=== PATIENT | male | born 1990 | race Caucasian/White ===

== ENCOUNTER 2023-06-15 15:47 | Outpatient (CLI) | payer OTHER, SELFPAY ==
--- NOTE | ~2023-06-15 | XR_ITS ---
XR chest 2V DATE: 06/15/2023 16:08 INDICATION: Tobacco abuse TECHNIQUE: PA and lateral chest COMPARISON: None FINDINGS: Normal heart size. No hilar or mediastinal enlargement. Moderate hyperinflation. No pulmona ry infiltrate or consolidation, pleural effusion or pulmonary vascular congestion or pneumothorax is detected. IMPRESSION: Moderate hyperinflation Reviewed, dictated and finalized at location A. IMPRESSION: Moderate hyperinflation
== END 2023-06-15 15:48 | disposition home or self-care (01) ==
PROVIDERS: PCP Nurse Practitioner Adult Health; Visit Provider Nurse Practitioner Adult Health
DX: R63.4 Abnormal weight loss (principal); Z72.0 Tobacco use; R91.8 Other nonspecific abnormal finding of lung field
CPT/HCPCS: 71046

== ENCOUNTER 2023-06-29 14:49 | Outpatient (CLI) | payer OTHER, SELFPAY ==
--- NOTE | 2023-06-29 16:05 | WPDPFTINT ---
PFT Procedure Performed PFT Procedure Performed Plethysmography (Lung Vol) Diffusing Cap (DLCO) Flow Vol Loop Spirometry w/o Bronchodil PFT Interpretation This is a pulmonary function test with spirometry, plethysmography and diffusing capacity. The test was performed and results interpreted in accordance with the 2019 and 2005 ATS/ERS Task Force guidelines respectively using the Global Lung Function Initiative-2012 reference equations. Patient demonstrated good effort and cooperation. Reproducibility criteria were met. The quality of the spirometry maneuver was Grade A. Findings: Spirometry: The contour the inspiratory and expiratory flow tracing are normal. The FVC is 4.75 L, 92% predicted. The FEV1 is 4.01 L, 94% predicted. The FEV1: FVC ratio is 84%. Plethysmography: The total lung capacity is 6.48 L, 97% predicted. The functional residual capacity is 3.74 L, 114% predicted. The residual volume is 1.72 L, 106% predicted. Diffusing capacity: The diffusing capacity unadjusted for hemoglobin and carboxyhemoglobin is 30.8, 90% predicted. The diffusing capacity adjusted for alveolar volume is 5.12, 100% predicted. Impression: The spirometry is normal without evidence of an obstructive abnormality. The lung volumes are normal. The diffusing capacity is normal. There are no prior studies for comparison
== END 2023-06-29 14:50 | disposition home or self-care (01) ==
LOC: ANHPFT 14:51
PROVIDERS: PCP Nurse Practitioner Adult Health; Visit Provider Nurse Practitioner Adult Health
DX: R09.89 Other specified symptoms and signs involving the circulatory and respiratory systems (principal); Z72.0 Tobacco use
CPT/HCPCS: 94375; 94726; 94729

== ENCOUNTER 2024-08-08 18:58 | Emergency (ER) | payer OTHER, SELFPAY ==
--- NOTE | ~2024-08-08 | XR_ITS ---
EXAM: XR ankle LT min 3V, XR tibia fibula LT 2V DATE: 08/08/2024 19:21 HISTORY: L ankle injury . COMPARISON: None available. FINDINGS: Normal mineralization. No fracture or dislocation. No lytic or blastic lesion. Joint space s are maintained. No erosion or periosteal change. Soft tissues within normal limits. IMPRESSION: No acute osseous finding in the left ankle or left tibia/fibula. Reviewed, dictated and finalized at location K. IMPRESSION: No acute osseous finding in the left ankle or left tibia/fibula.
[2024-08-08 19:01] VITALS: BP 136/78; PULSE 93; RESP 16; TEMP 36.5; O2SAT 98
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
--- OUTSIDE RECORDS SUMMARY | 2024-08-08 19:01 | XMS_ITS | Encounter Summary ---
Author Organization [facility] Address [address] [place] [address] Care Team Providers Care Lean Specialist Name Role Phone Suzanne Turcios MD Primary Care Provider [phone] Encounter Details Date Type Department Care Team (Latest Contact Info) Description 07/07/2024 Results Follow-Up [facility] [employer] [place] [address] [place] [address] Karlee Escalera ANP [address] [facility] [employer] [address] [place] [address] VITAMIN D 25 HYDROXY, COMPREHENSIVE METABOLIC PANEL, CBC WITH DIFFERENTIAL, Additional followed-up results: 2 Social History Tobacco Use Types Packs/Day Years Used Date Smoking Tobacco: Every Day Cigarettes Alcohol Use Standard Drinks/Week Comments Not Currently 0 (1 standard drink = 0.6 oz pur e alcohol) special occassions Sex and Gender Information Value Date Recorded Sex Assigned at Not on file 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 Vit D level slightly low. Cholesterol and other labs good. Keep 07/11 appt documented in this encounter Plan of Treatment Upcoming Encounters Date Type Department Care Team (Late st Contact Info) Description 08/25/2024 11:00 AM CDT Office Visit [facility] at [facility] [employer] [place] [address] [place] [phone] Darin Powell [address] [place] [phone] 10/10/2024 10:30 AM CDT Office Visit [facility] at [employer] [place] [address] [place] [address] Suzanne Turcios MD [address] [place] [address] documented as of this encounter Visit Diagnoses Not on filedocumented in this encounter Care Teams Lean Specialist Relationship Specialty Start Date End Date Suzanne Turcios MD [address] [place] [address] PCP - General Internal Medicine 07/19/23 documented as of this encounter
--- OUTSIDE RECORDS SUMMARY | 2024-08-08 19:01 | XMS_ITS | Clinical Summary ---
Author Organization [facility] [facility] Address [address] [place] [address] Care Team Providers Care Shift Leader Name Role Phone Suzanne Turcios MD Primary Care Provider [phone] Allergies Active Allergy Reactions Criticality Noted Date Comments Nicotine (Polacrilex) Headache Low 05/17/2023 Penicillins Hives High 05/17/2023 Sulfa (Sulfonamide Antibiotics) Hives High 05/03 Medications fluticasone propionate (FLONASE) 50 mcg/spray [place], Suspension nasal inhalerIndicat ions:Perennial allergic rhinitis with seasonal variation Administer 2 Sprays in each nostril daily. 16 Gram 05/17/19 24 Active cetirizine (ZyrTEC) 5 mg tabletIndicati ons:Perennial allergic rhinitis with seasonal variation Take 1 Tablet (5 mg) by mouth daily. 90 Tablet 05/17/19 24 Active cyanocobalamin (VITAMIN B-12) 100 mcg tablet Take 100 mcg by mouth daily. Active mirtazapine (REMERON) 15 mg tabletIndicati ons:Situationa l mixed anxiety and depressive disorder Take 1-2 Tablets (15-30 mg) by mouth daily at bedtime. 180 Tablet 1 08/05/19 25 Active mirtazapine (REMERON) 30 mg tabletIndicati ons:Mixed anxiety and depressive disorder TAKE 1 TABLET BY MOUTH EVERYDAY AT BEDTIME 90 Tablet 1 07/08/19 25 025 Discontinued mirtazapine (REMERON) 15 mg tabletIndicati ons:Situationa l mixed anxiety and depressive disorder Take 1 Tablet (15 mg) by mouth daily at bedtime. 30 Tablet 07/12/19 25 025 Discontinued Active Problems Problem Noted Date Diagnosed Date Low vitamin D level 07/09/2024 Pure hypercholesterolemia 07/09/2024 Hyperinflation of lungs 06/18/2023 Overview (06/18/2023): On CXR 06/2023 Tobacco abuse 05/17/2023 Abnormal weight loss 05/17/2023 Marital conflict involving divorce 05/17/2023 Perennial allergic rhinitis with seasonal variat ion 05/17/2023 Encounters Date Type Department Care Team Description 08/08/2024 3:30 PM CDT Clinical Support [facility] at [place] [address] [facility] [facility] [place] [address] Screening for condition (Primary Dx) 08/02/2024 Refill [facility] at [address] [facility] [place] [address] Suzanne Turcios MD Situational mixed anxiety and depressive disorder 07/25/2024 3:00 PM CDT Office Visit [facility] at [place] [address] [place] [address] Darin Powell Marital conflict involving divorce (Primary Dx) 07/17/2024 Telephone [facility] at [address] [place] [address] Darin Powell [employer] Linda Appt (Provider offering pt earlier appointment. Left message.) 07/11/2024 1:30 PM CDT Office Visit [place] [address] [address] [facility] [place] [address] Suzanne Turcios MD Situational mixed anxiety and depressive disorder (Primary Dx); Right knee pain, unspecified chronicity; Low vitamin D level 07/07/2024 Results Follow-Up [facility] at [place] [address] [facility] [place] [phone] Karlee Escalera, ANP VITAMIN D 25 HYDROXY, COMPREHENSIVE METABOLIC PANEL, CBC WITH DIFFERENTIAL, Additional followed-up results: 2 07/06/2024 Refill [facility] at [place] [address] [place] [address] Suzanne Turcios MD Mixed anxiety and depressive disorder 07/03/2024 2:00 PM CDT Clinical Support [place] [address] [facility] [place] [phone] Screening for condition 06/20/2024 3:00 PM CDT Office Visit [place] [address] [facility] [place] [address] Darin Powell Marital conflict involving divorce (Primary Dx) 06/18/2024 Chart Note [facility] at [place] [address] [facility] [address] [place] [address] Darin Powell 05/23/2024 Telephone [facility] at [place] [address] [place] [address] Darin Powell [employer] Linda Appt (Rescheduled canceled appointment to 06/20/24 at 3 PM in office.) 05/23/2024 Telephone [facility] at [place] [address] [place] [phone] Darin Powell [employer] Linda Appt (1st contact to reschedule canceled appointment. Left message.) 05/09/2024 Chart Note [facility] at [place] [address] [place] [address] Darin Powell from Last 3 Months Immunizations Immunization Administration Dates Next Due INFLUENZA VACCINE TRIVALENT SPLIT VIRUS, (6 MOS UP), 0.5ML (PF), IM 01/04/2024 Tdap Vaccine > 7 Yo IM VFC 05/16/2022 Family History Medical History Relation Name Comments No Known Problems Brother No Known Problems Daughter Diabetes Father Hypertension Father Diabetes Maternal Grandfather Diabetes Maternal Grandmother Diabetes Mother Hypertension Mother Diabetes Paternal Grandfather Diabetes Paternal Grandmother Relation Name Status Comments Brother Alive Daughter Alive Father Alive Maternal Grandfather Alive Maternal Grandmother Alive Mother Alive Paternal Grandfather Alive Paternal Grandmother Alive Social History Tobacco Use Types Packs/Day Years Used Date Smoking Tobacco: Every Day Cigarettes Tobacco Cessation:Ready to Q uit: Not Asked; Counseling Given: Not Answered Alcohol Use Standard Drinks/Week Comments Not Currently 0 (1 standard drink = 0.6 oz pur e alcohol) special occassions Sex and Gender Information Value Date Recorded Sex Assigned at Not on file 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 Gender Identity Not on file Sexual Orientation Not on file Last Filed Vital Signs Vital Sign Reading Time Taken Comments Blood Pressure 116/82 07/11/2024 1:29 PM CDT Pulse 92 07/11/2024 1:29 PM CDT Temperature 37.2 C (98.9 F) 04/11/2024 2:36 PM CULINARY INTERN Respiratory Rate 18 07/11/2024 1:29 PM CDT Oxygen Saturation 96% 07/11/2024 1:29 PM CDT Inhaled Oxygen Concentration - - Weight 65.5 kg (144 lb 6.4 oz) 07/11/2024 1:29 P M CDT Height 175.3 cm (5' 9) 07/11/2024 1:29 PM CDT Body Mass Index 21.32 07/11/2024 1:29 PM CDT Plan of Treatment Upcoming Encounters Date Type Department Care Team (Late st Contact Info) Description 08/25/2024 11:00 AM CDT Office Visit [facility] at [facility] [employer] [place] [address] [place] [address] Darin Powell [address] [place] [phone] 10/10/2024 10:30 AM CDT Office Visit [facility] at [facility] [employer] [place] [address] [place] [address] Suzanne Turcios MD [address] [place] [address] Health Maintenance Due Date Last Done Comments HEPATITIS B VACCINES (1 of 3 - 19+ 3-dose series) 2008 Preventative Visit- Commercial 03/05/2024 DTAP/TDAP/TD VACCINES (2 - T d or Tdap) 05/16/2032 05/16/2022, 05/16/2022 INFLUENZA VACCINE Completed 01/04/2024 HPV VACCINES Aged Out No longer eligi ble based on patient's age to complete this topic Procedures Procedure Name Priority Date/Time Associated Diagnosis Comments TSH Routine 07/03/2024 1:49 PM CDT Screening for condition LIPID PANEL Routine 07/03/2024 1:49 PM CDT Screening for condition CBC WITH DIFFERENTIAL Routine 07/03/2024 1:49 PM CDT Screening for condition COMPREHENSIVE METABOLIC PANEL Routine 07/03/2024 1:49 PM CDT Screening for condition VITAMIN D 25 HYDROXY Routine 07/03/2024 1:49 PM CDT Screening for condition from Last 3 Months Results * CBC WITH DIFFERENTIAL (07/03/2024 1:49 PM CDT) WBC 8.1 3.8 - 10.8 Thousand/u L [facility] RBC 5.12 4.20 - 5.80 Million/uL [facility] HEMOGLOBIN 15.5 13.2 - 17.1 g/dL [facility] HEMATOCRIT 47.4 38.5 - 50.0 % [facility] MCV 92.6 80.0 - 100.0 fL [facility] MCH 30.3 27.0 - 33.0 pg [facility] MCHC 32.7 32.0 - 36.0 g/dL [facility] Comment: For adults, a slight decrease in the calculated MCHC value (in the range of 30 to 32 g/dL) is most likely not clinically significant; however, it should be interpreted with caution in correlation with other red cell parameters and the patient's clinical condition. RDW 12.2 11.0 - 15.0 % [facility] PLATELETS 248 140 - 400 Thousand/u L [facility] MPV 10.9 7.5 - 12.5 fL [facility] NEUTROPHIL ABSOLUTE 5,905 1,500 - 7,800 cells/uL [facility] LYMPHOCYTE ABSOLUTE 1,499 850 - 3,900 cells/uL [facility] MONOCYTE ABSOLUTE 518 200 - 950 cells/uL [facility] EOSINOPHIL ABSOLUTE 97 15 - 500 cells/uL [facility] BASOPHILS ABSOLUTE 81 0 - 200 cells/uL [facility] NEUTROPHIL 72.9 % [facility] LYMPHOCYTES 18.5 % [facility] MONOCYTE 6.4 % [facility] EOSINOPHILS 1.2 % [facility] BASOPHILS 1.0 % [facility] Comment: Test Performed at: [place] [address] [address] [address] [facility] Carm[facility] Andrews Blood 07/03/2024 1:49 PM CDT 07/04/2024 2:52 AM CDT us Suzanne Turcios MD HEMATOLOGY ORDERABLES Final Re sult [facility] [phone] [place] [address] [address] [place] [address] * (ABNORMAL) VITAMIN D 25 HYDROXY (07/03/2024 1:49 PM CDT) VITAMIN D, 25 OH, TOTAL 22(L) 30 - 100 ng/mL [facility] Comment: Vitamin D Status 25-OH Vitamin D: Deficiency: <20 ng/mL Insufficiency: 20 - 29 ng/mL Optimal: > or = 30 ng/mL For 25-OH Vitamin D testing on patients on D2-supplementation and patients for whom quantitation of D2 and D3 fractions is required, the [facility](TM) 25-OH VIT D, (D2,D3), LC/MS/MS is recommended: order code 74940 (patients >2yrs). See Note 1 Note 1 For additional information, please refer to http://education.[employer]/faq/AGD490 (This link is being provided for informational/ educational purposes only.) Test Performed at: [facility] [address] [place] [address] Becca Andrews MD Blood 07/03/2024 1:49 PM CDT 07/04/2024 2:52 AM CDT Suzanne Turcios MD CHEMISTRY ORDERABLES Final Res ult Performing Organization Address City/[facility]/ZIP [facility] Phone Number [facility] [phone] [facility] [address] [place] [address] * TSH (07/03/2024 1:49 PM CDT) Pathologist [facility] TSH 0.93 0.40 - 4.50 mIU/L [facility] radha Modi Comment: Test Performed at: [facility] [place] [address] [place] [address] Becca Andrews Blood 07/03/2024 1:49 PM CDT 07/04/2024 2:52 AM CDT Suzanne Turcios MD CHEMISTRY ORDERABLES Final Res ult Performing Organization Address [facility] Phone Number [facility] [phone] [place] [address] [place] [address] * (ABNORMAL) LIPID PANEL (07/03/2024 1:49 PM CDT) CHOLESTEROL 181 <200 mg/dL [facility] HDL 43 > OR = 40 mg/dL [facility] TRIGLYCERIDE 91 <150 mg/dL [facility] LDL CALCULATED 119(H) mg/dL (calc) [facility] Comment: Reference range: <100 Desirable range <100 mg/dL for primary prevention; <70 mg/dL for patients with CHD or diabetic patients with > or = 2 CHD risk factors. LDL-C is now calculated using the Rosa calculation, which is a validated novel method providing better accuracy than the Friedewald equation in the estimation of LDL-C. Daniel PIERSON et al. ANDRAE. 2013;310(19): 2350-2427 (http://education.[employer]/faq/NRO493) CHOL/HDL RATIO 4.2 <5.0 (calc) [facility] NON-HDL CHOLESTEROL 138(H) <130 mg/dL (calc) [facility] Comment: For patients with diabetes plus 1 major ASCVD risk factor, treating to a non-HDL-C goal of <100 mg/dL (LDL-C of <70 mg/dL) is considered a therapeutic option. Test Performed at: [place] [address] [place] [address] [facility] Carmela Andrews Blood 07/03/2024 1:49 PM CDT 07/04/2024 2:52 AM CDT us Suzanne Turcios MD CHEMISTRY ORDERABLES Final Res ult [facility] [phone] [place] [address] [place] [address] * COMPREHENSIVE METABOLIC PANEL (07/03/2024 1:49 PM CDT) GLUCOSE 92 65 - 99 mg/dL [facility] Comment: Fasting reference interval BUN 15 7 - 25 mg/dL [facility] Modi CREATININE 1.05 0.60 - 1.26 mg/dL [facility] Modi GFR 96 > OR = 60 mL/min/1. 73m2 [facility] Modi BUN/CREAT RATIO SEE NOTE: 6 - 22 (calc) [facility] Comment: Not Reported: BUN and Creatinine are within reference range. SODIUM 138 135 - 146 mmol/L [facility] POTASSIUM 4.2 3.5 - 5.3 mmol/L [facility] CHLORIDE 102 98 - 110 mmol/L [facility] Modi CO2 27 20 - 32 mmol/L [facility] Modi CALCIUM 9.5 8.6 - 10.3 mg/dL [facility] TOTAL PROTEIN 6.6 6.1 - 8.1 g/dL [facility] Modi ALBUMIN 4.5 3.6 - 5.1 g/dL [facility] GLOBULIN 2.1 1.9 - 3.7 g/dL (calc) [facility] radha Moid ALBUMIN/GLOBULIN RATIO 2.1 1.0 - 2.5 (calc) [facility] radha Modi BILIRUBIN TOTAL 0.6 0.2 - 1.2 mg/dL [facility] radha Modi ALKALINE PHOSPHATASE 71 36 - 130 U/L [facility] AST 18 10 - 40 U/L [facility] ALT 31 9 - 46 U/L [facility] Comment: Test Performed at: [place] [address] [place] [address] [facility] Blood 07/03/2024 1:49 PM CDT 07/04/2024 2:52 AM CDT us Suzanne Turcios MD CHEMISTRY ORDERABLES Final Res ult [facility] [phone] [place] [address] [place] [address] from Last 3 Months Insurance [facility] OPEN ACCESS [facility] OPEN ACCESS Care Teams Shift Leader Relationship Specialty Start Date End Date Suzanne Turcios MD [address] [place] [address] PCP - General Internal Medicine 07/19/23
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
--- OUTSIDE RECORDS SUMMARY | 2024-08-08 20:46 | XMS_ITS | Encounter Summary ---
Author Organization [facility] Address [address] [place] [address] Care Team Providers Care Hem Marker Name Role Phone Suzanne Turcios MD Primary Care Provider [phone] Reason for Visit * Reason Comments Nurse Only Encounter Details Date Type Department Care Team (Latest Contact Info) Description 08/08/2024 3:30 PM CDT Clinical Support [facility] [place] [address] [place] [address] Screening for condition (Primary Dx) Social History Tobacco Use Types Packs/Day Years Used Date Smoking Tobacco: Every Day Cigarettes Alcohol Use Standard Drinks/Week Comments Not Currently 0 (1 standard drink = 0.6 oz pur e alcohol) special occassions Sex and Gender Information Value Date Recorded Sex Assigned at Not on file 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 [place] [address] [place] [address] Suzanne Turcios MD [address] [place] [address] documented as of this encounter Visit Diagnoses Diagnosis Screening for condition- Primary Screening for unspecified condition documented in this encounter Care Teams Hem Marker Relationship Specialty Start Date End Date Suzanne Turcios MD [address] [place] [address] PCP - General Internal Medicine 07/19/23 documented as of this encounter
--- OUTSIDE RECORDS SUMMARY | 2024-08-08 20:46 | XMS_ITS | Clinical Summary ---
Author Organization [facility] Address [address] [place] [address] Care Team Providers Care Ginning Operator Name Role Phone Suzanne Turcios MD Primary Care Provider [phone] Allergies Active Allergy Reactions Criticality Noted Date Comments Nicotine (Polacrilex) Headache Low 05/17/2023 Penicillins Hives High 05/17/2023 Sulfa (Sulfonamide Antibiotics) Hives High 05/03 Medications fluticasone propionate (FLONASE) 50 mcg/spray [place], Suspension nasal inhalerIndicat ions:Perennial allergic rhinitis with [...] Description 08/08/2024 3:30 PM CDT Clinical Support [facility] at [place] [address] [address] [facility] [place] [address] Screening for condition (Primary Dx) 08/02/2024 Refill [facility] [address] [facility] [facility] [place] [address] Suzanne Turcios MD Situational mixed anxiety and depressive disorder 07/25/2024 3:00 PM CDT Office Visit [facility] at [place] [address] [place] [address] Darin Powell Marital conflict involving divorce (Primary Dx) 07/17/2024 Telephone [facility] [address] [place] [address] Darin Powell Co[employer] Linda Appt (Provider offering pt earlier appointment. Left message.) 07/11/2024 1:30 PM CDT Office Visit [place] [address] [address] [facility] [place] [address] Suzanne Turcios MD Situational mixed anxiety and depressive disorder (Primary Dx); Right knee pain, unspecified chronicity; Low vitamin D level 07/07/2024 Results Follow-Up [facility] [place] [address] [facility] [place] [phone] Karlee Escalera, ANP VITAMIN D 25 HYDROXY, COMPREHENSIVE METABOLIC PANEL, CBC WITH DIFFERENTIAL, Additional followed-up results: 2 07/06/2024 Refill [facility] at [place] [address] [place] [address] Suzanne Turcios MD Mixed anxiety and depressive disorder 07/03/2024 2:00 PM CDT Clinical Support [place] [address] [facility] [address] [place] [address] Screening for condition 06/20/2024 3:00 PM CDT Office Visit [place] [address] [facility] [address] [place] [address] Darin Powell Marital conflict involving divorce (Primary Dx) 06/18/2024 Chart Note [facility] [place] [address] [facility] [address] [place] [phone] Darin Powell 05/23/2024 Telephone [facility] [place] [address] [place] [address] Darin Powell Co[employer] Linda Appt (Rescheduled canceled appointment to 06/20/24 at 3 PM in office.) 05/23/2024 Telephone [facility] [place] [address] [place] [address] Darin Powell CoCM Linda Appt (1st contact to reschedule canceled appointment. 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 Gender Identity Not on file Sexual Orientation Not on file Last Filed Vital Signs Vital Sign Reading Time Taken Comments Blood Pressure 116/82 07/11/2024 1:29 PM CDT Pulse 92 07/11/2024 1:29 PM CDT Temperature 37.2 C (98.9 F) 04/11/2024 2:36 PM DIRECTOR AIRPORT OPERATIONS Respiratory Rate 18 07/11/2024 1:29 PM CDT [...] Description 08/25/2024 11:00 AM CDT Office Visit [facility] [employer] [place] [address] [place] [address] Darin Powell [address] [place] [phone] 10/10/2024 10:30 AM CDT Office Visit [facility] [employer] [place] [address] [place] [address] Suzanne Turcios MD [address] [place] [address] Health Maintenance Due Date Last [...] WBC 8.1 3.8 - 10.8 Thousand/u L [facility] [place] RBC 5.12 4.20 - 5.80 Million/uL [facility] HEMOGLOBIN 15.5 13.2 - 17.1 g/dL [facility] HEMATOCRIT 47.4 38.5 - [...] % [facility]adiel Modi BASOPHILS 1.0 % [facility] [place] Modi Comment: Test Performed at: [facility] [place] [address] [address] [address] [facility] Carmela Andrews Blood 07/03/2024 1:49 PM CDT 07/04/2024 2:52 AM CDT us Suzanne Turcios MD HEMATOLOGY ORDERABLES Final Re sult [facility] [phone] [place] [address] [address] [address] * (ABNORMAL) VITAMIN D 25 HYDROXY (07/03/2024 1:49 PM CDT) VITAMIN D, 25 OH, TOTAL 22(L) 30 - 100 ng/mL [facility] [place] Comment: Vitamin D Status 25-OH Vitamin D: Deficiency: <20 ng/mL Insufficiency: 20 - 29 ng/mL Optimal: > or = 30 ng/mL For 25-OH Vitamin D testing on patients on D2-supplementation and patients for whom quantitation of D2 and D3 fractions is required, the QuestAssureD(TM) 25-OH VIT D, (D2,D3), LC/MS/MS is recommended: order code 50603 (patients >2yrs). See Note 1 Note 1 For additional information, please refer to http://education.Gigawatt/faq/FOH700 (This link is being provided for informational/ educational purposes only.) Test Performed at: [facility] [address] [place] [address] Becca Andrews MD Blood 07/03/2024 1:49 PM CDT 07/04/2024 2:52 AM CDT Suzanne Turcios MD CHEMISTRY ORDERABLES Final Res ult Performing Organization Address City/[facility]/ZIP [facility] Phone Number [facility] [phone] [facility] [address] [place] [address] * TSH (07/03/2024 1:49 PM CDT) Pathologist [facility] TSH 0.93 0.40 - 4.50 mIU/L [facility] radha Modi Comment: Test Performed at: [facility] [place] [address] [place] [address] Becca Andrews Blood 07/03/2024 1:49 PM CDT 07/04/2024 2:52 AM CDT Suzanne Turcios MD CHEMISTRY ORDERABLES Final Res ult Performing Organization Address [facility] Phone Number [facility] [phone] [place] [address] [place] [address] * (ABNORMAL) LIPID PANEL (07/03/2024 1:49 PM CDT) CHOLESTEROL 181 <200 mg/dL [facility] Rian HDL 43 > OR = 40 mg/dL [facility]ian TRIGLYCERIDE 91 <150 mg/dL [facility]ian LDL CALCULATED 119(H) mg/dL (calc) [facility] Comment: Reference range: <100 Desirable range <100 mg/dL for primary prevention; <70 mg/dL for patients with CHD or diabetic patients with > or = 2 CHD risk factors. LDL-C is now calculated using the Rosa calculation, which is a validated novel method providing better accuracy than the Friedewald equation in the estimation of LDL-C. Daniel PIERSON et al. ANDRAE. 2013;310(19): 3847-0893 (http://education.Gigawatt/faq/UUF196) CHOL/HDL RATIO 4.2 <5.0 (calc) [facility] Modi NON-HDL CHOLESTEROL 138(H) <130 mg/dL (calc) [facility] Comment: For patients with diabetes plus 1 major ASCVD risk factor, treating to a non-HDL-C goal of <100 mg/dL (LDL-C of <70 mg/dL) is considered a therapeutic option. Test Performed at: [facility] [place] [address] [place] [address] [facility] Carmela Andrews Blood 07/03/2024 1:49 PM CDT 07/04/2024 2:52 AM CDT us Suzanne Turcios MD CHEMISTRY ORDERABLES Final Res ult [facility] [phone] [facility] [place] [address] [place] [address] * COMPREHENSIVE METABOLIC PANEL (07/03/2024 1:49 PM CDT) GLUCOSE 92 65 - 99 mg/dL [facility] Modi Comment: Fasting reference interval BUN 15 7 - 25 mg/dL [facility] radha Modi CREATININE 1.05 0.60 - 1.26 mg/dL [facility] radha Modi GFR 96 > OR = 60 mL/min/1. 73m2 [facility] radha Modi BUN/CREAT RATIO SEE NOTE: 6 - 22 (calc) [facility] Modi Comment: Not Reported: BUN and Creatinine are within reference range. SODIUM 138 135 - 146 mmol/L [employer] [employer] radha Modi POTASSIUM 4.2 3.5 - 5.3 mmol/L [employer] [employer] radha Modi CHLORIDE 102 98 - 110 mmol/L [facility] radha Modi CO2 27 20 - 32 mmol/L [employer] radha Modi CALCIUM 9.5 8.6 - 10.3 mg/dL [facility] radha Modi TOTAL PROTEIN 6.6 6.1 - 8.1 g/dL [employer] radha Modi ALBUMIN 4.5 3.6 - 5.1 g/dL [facility] Rian GLOBULIN 2.1 1.9 - 3.7 g/dL (calc) [facility] radha Modi ALBUMIN/GLOBULIN RATIO 2.1 1.0 - 2.5 (calc) [facility] radha Modi BILIRUBIN TOTAL 0.6 0.2 - 1.2 mg/dL [facility] radha Modi ALKALINE PHOSPHATASE 71 36 - 130 U/L [facility] Rian AST 18 10 - 40 U/L [facility] ALT 31 9 - 46 U/L [facility] Rian Comment: Test Performed at: [place] [address] [place] [address] [facility] Andrews Blood 07/03/2024 1:49 PM CDT 07/04/2024 2:52 AM CDT us Suzanne Turcios MD CHEMISTRY ORDERABLES Final Res ult [facility] [phone] [place] [address] [place] [address] from Last 3 Months Insurance [facility] OPEN ACCESS [facility] OPEN ACCESS Care Teams Ginning Operator Relationship Specialty Start Date End Date Suzanne Turcios MD [address] [place] [address] PCP - General Internal Medicine 07/19/23
--- OUTSIDE RECORDS SUMMARY | 2024-08-08 20:46 | XMS_ITS | Encounter Summary ---
Author Organization [facility] Address [address] [place] [address] Care Team Providers Care Pen Rider Name Role Phone Suzanne Turcios MD Primary Care Provider Encounter Details Date Type Department Care Team (Latest Contact Info) Description 07/07/2024 Results Follow-Up [facility] [place] [facility] / ?.?? 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 [place] [address] [place] [phone] Darin Powell [address] [place] [phone] 10/10/2024 10:30 AM CDT Office Visit [facility] [place] [facility] [employer] / ?.?? [place] [address] [place] [address] Suzanne Turcios MD [address] [place] [phone] documented as of this encounter Visit Diagnoses Not on filedocumented in this encounter Care Teams Pen Rider Relationship Specialty Start Date End Date Suzanne Turcios MD [address] [place] [address] PCP - General Internal Medicine 07/19/23 documented as of this encounter
[2024-08-08 21:12] VITALS: BP 129/71; PULSE 75; RESP 16; TEMP 36.8; O2SAT 96
== END 2024-08-08 21:14 | disposition home or self-care (01) ==
LOC: ANHED 20:45
PROVIDERS: Emergency Provider Physician Assistant; PCP Nurse Practitioner Adult Health
DX: S90.512A Abrasion, left ankle, initial encounter (principal); V03.00XA Pedestrian on foot injured in collision with car, pick-up truck or van in nontraffic accident, initial encounter
CPT/HCPCS: 73590; 73610; 99283; 99284